=== PATIENT | male | born 1945 | race American Indian/Alaskan Native ===

== ENCOUNTER 2017-02-17 10:45 | Day surgery (SDC) | payer MEDICARE ==
[~2017-02-17 10:45] MED LIST: ANCEF/STERILE WATER 2 GM/20 ML IV NR; DECADRON ONE; DIPRIVAN 10 MG/ML IV ONE; HEPARIN SUB-Q NR; NACL 0.9% 1000 ML 1,000 ML IV SCH; NEOSTIGMINE ONE; PEPCID PO NR; ROBINUL ONE; SUBLIMAZE ONE; VERSED IV NR; XYLOCAINE MPF 2% ONE; ZEMURON IV ONE; ZOFRAN ONE
[2017-02-17] MEDS ORDERED: NACL BACTERIOSTATIC INFILTRATI ONE (11:28)
[2017-02-17] MEDS ORDERED: MARCAINE 0.25% INFILTRATI ONE (11:30)
--- NOTE | 2017-02-17 11:48 | Anesthesia Consultation ---
Anesthesia Consult and Med Hx Date of service: 02/17/17 - Airway ROM Head & Neck: Adequate Mental/Hyoid Distance: Adequate Mallampati Class: Class II Intubation Access Assessment: Probably Good - Pulmonary Exam CTA: Yes - Cardiac Exam Cardiac Exam: RRR - Pre-Operative Health Status ASA Pre-Surgery Classification: ASA2 Proposed Anesthetic Plan: General - Pulmonary Hx Smoking: Yes ( [id number]) - Cardiovascular System Hx Hypertension: Yes (dx in july 2016) - Central Nervous System Hx Psychiatric Problems: No - Gastrointestinal Hx Gastroesophageal Reflux Disease: No - Endocrine Hx Renal Disease: No Hx Insulin Dependent Diabetes: No - Other Systems Hx Alcohol Use: Yes (occassionally) Hx Substance Use: Yes (marijuana ) Hx Cancer: No Hx Obesity: No
--- NOTE | 2017-02-17 11:49 | Anesthesia Day of Surgery ---
Anesthesia Day of Surgery - Day of Surgery Patient Examined: Yes Patient H&P Reviewed: Yes Patient is NPO: Yes
[2017-02-17] MEDS ORDERED: ePHEDrine SULFATE ONE (12:25)
[2017-02-17] MEDS ORDERED: MARCAINE 0.5% INFILTRATI ONE (12:31)
[2017-02-17] MEDS ORDERED: NACL 0.9% IR ONE (12:31)
[2017-02-17] MEDS ORDERED: TORADOL ONE (13:25)
--- NOTE | 2017-02-17 13:32 | Short Stay Summary ---
Short Stay Documentation Date of service: 02/17/17 - History H&P: obtained from office - Allergies and Medications Current Medications: Allergies No Known Allergies Allergy (Verified 02/09/17 15:40) Home Medications Medication Instructions Recorded Confirmed Last Taken Type Hydrochlorothiazide [HCTZ] 25 mg PO QDAY 02/09/17 02/17/17 02/16/17 10:00 History Losartan Potassium 50 mg PO DAILY 02/09/17 02/17/17 02/16/17 10:00 History Multivit-Mins/Iron/Folic/Lycop 1 tab PO DAILY 02/09/17 02/17/17 02/14/17 10:00 History [Centrum Men's Tablet] amLODIPine [Norvasc] 10 mg PO DAILY 02/09/17 02/17/17 02/16/17 10:00 History Active Medications Cefazolin Sodium (Ancef/Sterile Water 2 Gm/20 Ml) 2 gm IV PREOP NR Stop: 02/17/17 23:59 Famotidine (Pepcid) 20 mg PO PREOP NR Stop: 02/17/17 23:59 Last Admin: 02/17/17 11:33 Dose: 20 mg Heparin Sodium (Porcine) (Heparin) 5,000 unit SUB-Q PREOP NR Stop: 02/17/17 23:59 Last Admin: 02/17/17 11:33 Dose: 5,000 unit Sodium Chloride (Nacl 0.9% 1000 Ml) 1,000 mls @ 75 mls/hr IV DIRECT AKIL Last Admin: 02/17/17 11:30 Dose: 75 mls/hr Midazolam HCl (Versed) 2 mg IV PREOP NR Stop: 02/17/17 23:59 Last Admin: 02/17/17 11:34 Dose: 2 mg - Brief post op/procedure progress note Date of procedure: 02/17/17 Pre-op diagnosis: Right inguinal hernia Post-op diagnosis: same Procedure: Laparoscopic right inguinal hernia repair with mesh Anesthesia: JARETT, local Surgeon: TRISH OROZCO [employer]: JOSEE GREWAL Estimated blood loss: minimal Pathology: none Condition: stable - Disposition Condition at discharge: Good Disposition: DC-01 TO HOME OR SELFCARE Short Stay Discharge Plan Activity: no restrictions Diet: regular Wound: remove dressing (02/19/18 and then may shower) Special Instructions: other (Ice pack to the right groin for 1-2 days to help reduce pain and swelling) Follow up with: ISACC BLNAD MD [Primary Care Provider] - 7 Days TRISH OROZCO MD [Staff Physician] - 7 Days Prescriptions: oxyCODONE /ACETAMINOPHEN [Percocet 5/325] 1 - 2 tab PO Q4HR PRN #40 tab PRN Reason: Pain
[2017-02-17] MEDS ORDERED: DILAUDID IV PRN ×2 (13:50→13:53)
[2017-02-17] MEDS ORDERED: ZOFRAN IV PRN (13:50)
[2017-02-17] MEDS ORDERED: NEO SYNEPHRINE/NS Syringe(OR USE) IV ONE (14:00)
[2017-02-17] MEDS ORDERED: NACL 0.9% 1000 ML 1,000 ML ONE (14:19)
[2017-02-17 14:24] VITALS: BP 145/84
--- NOTE | 2017-02-17 15:05 | Post Anesthesia Evaluation ---
- Post Anesthesia Evaluation Patient Participated: Yes Airway Patent: Yes Stable Respiratory Function: Yes Nausea/Vomiting: No Temp > 96.8F: Yes Pain Manageable: Yes Adequeate Hydration: Yes Anesthesia Complications: No Block Receding Appropriately: Not Applicable Patient on Ventilator: No
--- NOTE | 2017-02-17 15:53 | Operative Report ---
PREOPERATIVE DIAGNOSIS: Right inguinal hernia. POSTOPERATIVE DIAGNOSIS: Right inguinal hernia. PROCEDURE: Laparoscopic right inguinal hernia repair with mesh. SURGEON: Jin Espino MD. PLASTER MOLDER: Dr. Rodríguez. ANESTHESIA: General and local. ESTIMATED BLOOD LOSS: Minimal. SPECIMEN: None. COMPLICATIONS: None. INDICATIONS: This is a 71-year-old gentleman who has a symptomatic right inguinal hernia who presents now for repair. OPERATIVE COURSE: The patient was brought to the operating room, identified, and placed in the supine position. General anesthesia was achieved. His abdomen was prepped and draped in usual manner. Prior to all incisions, the area was infiltrated with 0.25% Marcaine. A supraumbilical 10 mm incision was made using Veress needle technique. The abdomen was insufflated to 15 mmHg pressure. A 10 mm trocar was inserted using a 30-degree 10 mm telescope. The other trocars were placed under direct vision, which included a right and left lateral 5 mm ports. The abdomen was explored. There was no obvious hernia on the left. In the right side, he had a very large non-incarcerated right indirect inguinal hernia. We proceeded to take down the peritoneal lining by making a sharp dissection across peritoneal lining and then bluntly dissecting it down off the abdominal wall, we then took down to expose Elías's ligament and then reduced the hernia sac out of the scrotum with care being taken not to injure the gonadal vessels, epigastric vessels or vas deferens. Once we had the peritoneal lining completely down, we reduced a 3 inch x 5 inch piece of Parietex mesh, tacked it once to Elías's ligament and twice across the anterior abdominal wall to hold it in place and then reperitonealized the abdomen with the ProTacker. Great care was taken to make sure that we did not go too far laterally and injure the nerves, and did not injure the epigastric vessels with the tacks. Once we were satisfied, the mesh was in good position and appropriately covered with the peritoneal lining, we then removed the ports under direct vision. No signs of bleeding from the port sites. We evacuated the CO2 and closed the fascia in the 10 mm port site with 0 Vicryl and closed all the skin incisions with a 4-0 Vicryl suture, Steri-Strips and bandage. JOB# [id number] BSM/NTS
== END 2017-02-17 15:10 | disposition home or self-care (01) ==
LOC: OR 10:45
PROVIDERS: ATTEND Surgery
DX: K40.90 Unilateral inguinal hernia, without obstruction or gangrene, not specified as recurrent (principal); I10 Essential (primary) hypertension; Z87.891 Personal history of nicotine dependence
CPT/HCPCS: 49650; C1781; J0690; J1100; J1644; J1885; J2250; J2370; J2405; J2704; J2710; J3010; J7030